=== PATIENT | female | born 1985 | race Caucasian/White ===

== ENCOUNTER 2017-05-16 17:50 | Emergency (ER) | payer MEDICAID ==
[~2017-05-16] VITALS: Ht 165.1 cm; Wt 79.5 kg
[~2017-05-16 17:50] MED LIST: OXYC-302 PO
[2017-05-16 17:51] VITALS: BP 126/86
[2017-05-16] MEDS ORDERED: ALBUTEROL/IPRATROPIUM 2.5MG/0.5MG, 3 ML ONE (18:17)
[2017-05-16] MEDS ORDERED: ALBUTEROL/IPRATROPIUM 2.5MG/0.5MG, 3 ML NPPB ONE (18:30)
[2017-05-16] MEDS ORDERED: ALBU8.5H8 INH (18:37)
== END 2017-05-16 18:57 | disposition home or self-care (01) ==
LOC: ED 18:20
DX: J45.31 Mild persistent asthma with (acute) exacerbation (principal); J45.21 Mild intermittent asthma with (acute) exacerbation; J20.8 Acute bronchitis due to other specified organisms; B97.89 Other viral agents as the cause of diseases classified elsewhere; F17.210 Nicotine dependence, cigarettes, uncomplicated
CPT/HCPCS: 71046; 94640; 99284; J7512; J7620

== ENCOUNTER 2017-08-05 15:11 | Emergency (ER) | payer MEDICAID ==
[~2017-08-05] VITALS: Ht 165.1 cm; Wt 78.2 kg
[~2017-08-05 15:11] MED LIST changes: +ALBU8.5H8 INH
[2017-08-05 15:19] VITALS: BP 123/85
[2017-08-05] MEDS ORDERED: IBUPROFEN 200 MG TABLET ONE (15:38)
[2017-08-05] MEDS ORDERED: IBUPROFEN 200 MG TABLET PO ONE (16:00)
== END 2017-08-05 15:47 | disposition home or self-care (01) ==
LOC: ED 15:41
DX: K08.89 Other specified disorders of teeth and supporting structures (principal)
CPT/HCPCS: 99283

== ENCOUNTER 2017-08-09 22:40 | Emergency (ER) | payer MEDICAID ==
[~2017-08-09] VITALS: Ht 165.1 cm; Wt 80.3 kg
[2017-08-09 22:41] VITALS: BP 143/91
[2017-08-09] MEDS ORDERED: HYDROcodone/APAP 5/325 TABLET PO STA (23:03)
[2017-08-09] MEDS ORDERED: HYDROcodone/APAP 5/325 TABLET ONE (23:05)
== END 2017-08-09 23:16 | disposition home or self-care (01) ==
LOC: ED 22:50
DX: K02.9 Dental caries, unspecified (principal); J45.909 Unspecified asthma, uncomplicated; F17.210 Nicotine dependence, cigarettes, uncomplicated
CPT/HCPCS: 99283; 99406

== ENCOUNTER 2017-11-18 01:47 | Emergency (ER) | payer MEDICAID ==
[~2017-11-18] VITALS: Ht 165.1 cm; Wt 85.5 kg
[2017-11-18 01:52] VITALS: BP 136/94
[2017-11-18] MEDS ORDERED: KETOROLAC 30 MG/1 ML IM ONE (02:00)
[2017-11-18] MEDS ORDERED: KETOROLAC 30 MG/1 ML ONE (02:29)
== END 2017-11-18 03:08 | disposition home or self-care (01) ==
LOC: ED 02:41
DX: K08.89 Other specified disorders of teeth and supporting structures (principal)
CPT/HCPCS: 96372; 99283; J1885

== ENCOUNTER 2018-09-10 18:04 | Emergency (ER) | payer MEDICAID, OTHER ==
[~2018-09-10] VITALS: Ht 165.1 cm; Wt 80.0 kg
[2018-09-10 18:19] VITALS: BP 122/82
[2018-09-10] MEDS ORDERED: IBUPROFEN 200 MG TABLET ONE (19:50)
[2018-09-10] MEDS ORDERED: IBUPROFEN 200 MG TABLET PO ONE (20:00)
== END 2018-09-10 20:00 | disposition home or self-care (01) ==
LOC: ED 19:50
DX: S93.491A Sprain of other ligament of right ankle, initial encounter (principal); J45.909 Unspecified asthma, uncomplicated; W01.0XXA Fall on same level from slipping, tripping and stumbling without subsequent striking against object, initial encounter; Y93.89 Activity, other specified; Y99.8 Other external cause status; Y92.009 Unspecified place in unspecified non-institutional (private) residence as the place of occurrence of the external cause
CPT/HCPCS: 99283